=== PATIENT | female | born 1975 | race Caucasian/White ===

== ENCOUNTER 2017-08-23 09:42 | Emergency (ER) | payer MEDICARE, OTHER ==
[~2017-08-23] VITALS: Ht 154.9 cm; Wt 55.0 kg
[~2017-08-23 09:42] MED LIST: ALBU8I INH; CLIN1CAP6 PO; DICL75 PO
[2017-08-23 09:47] VITALS: BP 122/65; PULSE 78; RESP 17; TEMP 98.3; O2SAT 100
[2017-08-23] MEDS ORDERED: IBUP1TAB7 PO (10:10)
[2017-08-23] MEDS ORDERED: FLUT1SPR5 EACH NARE (10:10)
[2017-08-23] MEDS ORDERED: AMOX875T PO (10:10)
[2017-08-23] MEDS ORDERED: predniSONE 20 MG TAB PO ONE (10:15)
[2017-08-23] MEDS ORDERED: KETOROLAC TROMETHAMINE 60 MG/2 ML (IM) VIAL IM ONE (10:15)
--- NOTE | 2017-08-23 10:49 | PD ---
HPI Chief Complaint: ENT Complaint Time Seen by Provider: 10:05 Travel History International Travel<30 days: No Contact w/Intl Traveler<30days: No Traveled to known affect area: No History of Present Illness HPI 41-year-old female presents emergency department with severe right ear pain for the past 2 days. She also complains of pain in the left ear but not as bad as the right. She has some upper respiratory symptoms including congestion and sore throat more on the right than the left. She denies fever, chills, postnasal drip, or cough. She does have rhinitis. She denies significant shortness of breath or wheezing. She has no nausea vomiting or diarrhea. No history of heartburn. She has no known drug allergies. PFSH Past Medical History COPD: Yes Diminished Hearing: No ?: Not LMP: 07/2017 Tubal Ligation: Yes Social History Alcohol Use: No Tobacco Use: Yes (1 ppd) Allergies-Medications (Allergen,Severity, Reaction): Coded Allergies: No Known Allergies (Unverified Adverse Reaction, Unknown, 08/23/17) Reported Meds & Prescriptions Reported Meds & Active Scripts Active Flonase Nasal Lucas (Fluticasone Nasal Lucas) 50 Mcg/Act Lucas 100 Mcg EACH NARE BID Ibuprofen 800 Mg Tab 800 Mg PO Q8H PRN Amoxicillin 875 Mg Tab 875 Mg PO BID [address] (Diclofenac Sod) 75 Mg Tab 75 Mg PO BID Clindamycin Hcl (Clindamycin HCl) 300 Mg Cap 300 Mg PO Q6HR Reported Ventolin Hfa (Albuterol Sulfate) 8 Gm Aero 1 Puff INH Q4H PRN * SHAKE WELL BEFORE USE * Review of Systems Except as stated in HPI: all other systems reviewed are Neg General / Constitutional: No: Fever, Chills Eyes: No: Visual changes HENT: Positive: Sore Throat, Rhinitis, Rhinorrhea, Congestion, Earache, No: Headaches, Vertigo, Lightheadedness, Nosebleed, Neck Stiffness, Neck Pain, Masses, Gingival Bleeding, Ear Discharge Cardiovascular: No: Chest Pain or Discomfort Respiratory: No: Cough, Shortness of Breath, Wheezing Gastrointestinal: No: Abdominal Pain Genitourinary: No: Dysuria Musculoskeletal: No: Pain Skin: No Rash Neurologic: No: Weakness Psychiatric: No: Depression Endocrine: No: Polydipsia Hematologic/Lymphatic: No: Easy Bruising Physical Exam Narrative GENERAL: Patient appears in moderate distress. SKIN: Warm and dry. Normal color. Normal turgor. HEAD: Atraumatic. Normocephalic. EYES: Pupils equal and round. No scleral icterus. No injection or drainage. ENT: No nasal bleeding or discharge. Mucous membranes pink and moist. Both TMs have dull bulging TMs bilaterally with serous effusions noted. There is no significant erythema. There is no perforations or drainage. Ear canals normal. Posterior pharynx is unremarkable. No tonsillitis. No exudate NECK: Trachea midline. Supple nontender without significant lymphadenopathy CARDIOVASCULAR: Regular rate and rhythm. RESPIRATORY: No accessory muscle use. Clear to auscultation. Breath sounds equal bilaterally. MUSCULOSKELETAL: Extremities without clubbing, cyanosis, or edema. No obvious deformities. NEUROLOGICAL: Awake and alert. No obvious cranial nerve deficits. Motor grossly within normal limits. Five out of 5 muscle strength in the arms and legs. Normal speech. PSYCHIATRIC: Appropriate mood and affect; insight and judgment normal. Data Data Last Documented VS Vital Signs Date Time Temp Pulse Resp B/P (MAP) Pulse Ox O2 Delivery O2 Flow Rate FiO2 08/23/17 09:47 98.3 78 17 122/65 (84) 100 Orders Orders Ketorolac Inj (Toradol Inj) (08/23/17 10:15) Prednisone (Deltasone) (08/23/17 10:15) MDM Medical Decision Making Medical Screen Exam Complete: Yes Emergency Medical Condition: Yes Differential Diagnosis Sinusitis. Upper respiratory infection. Serous otitis. Otitis media. Otitis externa. TMJ. Narrative Course Patient is in moderate distress but medically stable. Patient is given 60 mg Toradol IM as well as 20 mg prednisone p.o. now. Patient is continued on amoxicillin 875 twice daily 10 days. Patient is placed on Flonase nasal spray 2 sprays each nostril daily to encourage drainage. Patient is given ibuprofen 800 mg 3 times daily with food. Patient to return if symptoms do not improve or worsen as needed Diagnosis Primary Impression: Bilateral acute serous otitis media Qualified Codes: H65.03 - Acute serous otitis media, bilateral Patient Instructions: General Instructions, Serous Otitis Media (ED) Additional Instructions: Patient is in moderate distress but medically stable. Patient is given 60 mg Toradol IM as well as 20 mg prednisone p.o. now. Patient is continued on amoxicillin 875 twice daily 10 days. Patient is placed on Flonase nasal spray 2 sprays each nostril daily to encourage drainage. Patient is given ibuprofen 800 mg 3 times daily with food. Patient to return if symptoms do not improve or worsen as needed Med/Other Pt SpecificInfo: Prescription(s) given Scripts Fluticasone Nasal Lucas (Flonase Nasal Lucas) 50 Mcg/Act Lucas 100 MCG EACH NARE BID for Allergies, #1 BOTTLE 0 Refills Prov: Oscar Huang MD 08/23/17 Ibuprofen (Ibuprofen) 800 Mg Tab 800 MG PO Q8H Y for Pain/Inflammation, #60 TAB 0 Refills Prov: Oscar Huang MD 08/23/17 Amoxicillin (Amoxicillin) 875 Mg Tab 875 MG PO BID for Infection for 10 Days, #20 TAB 0 Refills Prov: Oscar Huang MD 08/23/17 Disposition: 01 DISCHARGE HOME Condition: Stable Clinton Guerrero Aug 23, 2017 10:49
== END 2017-08-23 11:22 | disposition home or self-care (01) ==
LOC: NEPK 09:42
DX: H65.03 Acute serous otitis media, bilateral (principal); J44.9 Chronic obstructive pulmonary disease, unspecified; F17.200 Nicotine dependence, unspecified, uncomplicated
CPT/HCPCS: 96372; 99283; J1885; J7512